=== PATIENT | female | born 1980 | race Caucasian/White ===

== ENCOUNTER 2020-05-20 21:02 | Emergency (ER) | payer SELFPAY ==
[~2020-05-20] VITALS: Ht 165.1 cm; Wt 74.5 kg
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
[2020-05-20] MEDS ORDERED: IV NORMAL SALINE 1,000ML 1,000 ML IV ONE (21:30)
[2020-05-20 21:42] LABS: CALCIUM 9.3 mg/dL (8.5-10.1); GFR 62.1; POTASSIUM 3.3 mmol/L (3.5-5.1)
[2020-05-20 21:48] LABS: ALBUMIN 3.7 g/dL (3.4-5.0); ALBUMIN/GLOBULIN RATIO 0.9 (1.0-1.7); BASO % 1 % (0-3); EOS # 0.1 x10^3/uL (0.0-0.7); EOS % 1 % (0-3); HEMATOCRIT 38.6 % (36.0-47.0); HEMOGLOBIN 12.3 g/dL (12.0-15.5); LYMPH % 15 % (24-48); MEAN CORPUSCULAR HEMOGLOBIN 28 pg (25-35); MEAN CORPUSCULAR HGB CONC 32 g/dL (31-37); MEAN CORPUSCULAR VOLUME 87 fL (79-100); MONO % 14 % (0-9); NEUT # 4.8 x10^3uL (1.8-7.7); NEUT % 70 % (31-73); PLATELET COUNT 315 x10^3/uL (140-400); RED BLOOD COUNT 4.43 x10^6/uL (3.50-5.40); RED CELL DISTRIBUTION WIDTH 16.6 % (11.5-14.5); TOTAL BILIRUBIN 0.2 mg/dL (0.2-1.0); TOTAL PROTEIN 7.8 g/dL (6.4-8.2); WHITE BLOOD COUNT 6.9 x10^3/uL (4.0-11.0)
[2020-05-20 21:50] LABS: PREG TEST PT QUAL NEGATIVE (NEG)
--- NOTE | 2020-05-20 21:54 | RAD ---
STUDY: CT head and cervical spine without contrast INDICATION: Recurrent seizures. Fall with injury. COMPARISON: None. TECHNIQUE: Axial CT imaging through the head and cervical spine without the use of intravenous contrast. Sagittal and coronal reformats were obtained. One or more of the following individualized dose reduction techniques were utilized for this examination: 1. Automated exposure control 2. Adjustment of the mA and/or kV according to patient size 3. Use of iterative reconstruction technique. FINDINGS: CT head: No acute intracranial hemorrhage. No mass effect, midline shift or hydrocephalus. Gold-white matter differentiation is maintained. Rounded density extending above the expected location of the carotid terminus on the right, image 11 series 2, measures approximately 5.4 mm transverse. No depressed calvarial fracture. CT cervical spine: No acute fracture or traumatic malalignment. No severe osseous encroachment on the central canal or neural foramina. There is a mild disc osteophyte complex at C5-C6. No soft tissue sequela of trauma. Unremarkable lung apices. IMPRESSION: CT head: 1. No acute intracranial abnormality by CT. 2. In keeping with the provided history of an aneurysm, a rounded focus of hyperdensity extends upwards from the expected location of the right carotid terminus typical of a saccular aneurysm measuring on this unenhanced exam up to 5.[address] cervical spine: 1. No acute fracture or traumatic malalignment. Electronically signed by: RUSTY PEARSON MD (05/20/2020 9:51 PM) [id number]
[2020-05-20 22:15] VITALS: BP 126/73
--- NOTE | 2020-05-21 01:42 | EKG ---
[address] [address] Test Date: 2020-05-20 Test Time: 21:50:56 Pat Name: JENNY DOMINGUEZ Department: Room: Gender: F [employer]: : 1980 Requested By: ISMAEL HASTINGS Order Number: [id number] Reading MD: Measurements Intervals [place] Rate: 86 P: 29 CO: 108 QRS: 11 QRSD: 92 T: 28 QT: 362 QTc: 436 Interpretive Statements SINUS RHYTHM NORMAL ECG RI6.02 No previous ECG available for comparison
== END 2020-05-20 22:20 | disposition left against medical advice (07) ==
LOC: ER 21:02
DX: R56.9 Unspecified convulsions (principal); I67.1 Cerebral aneurysm, nonruptured; I10 Essential (primary) hypertension; F17.210 Nicotine dependence, cigarettes, uncomplicated; F10.20 Alcohol dependence, uncomplicated; Z88.2 Allergy status to sulfonamides; Y90.9 Presence of alcohol in blood, level not specified
CPT/HCPCS: 36415; 70450; 72125; 80053; 84703; 85025; 93005; 96360; 99285; J7030

== ENCOUNTER 2020-09-10 15:42 | Emergency (ER) | payer SELFPAY ==
[~2020-09-10] VITALS: Ht 165.1 cm; Wt 74.5 kg
[2020-09-10 15:53] VITALS: BP 147/97
[2020-09-10] MEDS ORDERED: IOHEXOL 350 MG/ML 100 ML VIAL. IV ONE (16:00)
[2020-09-10] MEDS ORDERED: IV NORMAL SALINE 1,000ML 1,000 ML IV ONE (16:00)
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
[2020-09-10 16:30] LABS: BASO % 0 % (0-3); EOS # 0.1 x10^3/uL (0.0-0.7); EOS % 1 % (0-3); HEMATOCRIT 39.1 % (36.0-47.0); HEMOGLOBIN 12.8 g/dL (12.0-15.5); LYMPH # 1.6 x10^3/uL (1.0-4.8); LYMPH % 19 % (24-48); MEAN CORPUSCULAR HEMOGLOBIN 28 pg (25-35); MEAN CORPUSCULAR HGB CONC 33 g/dL (31-37); MEAN CORPUSCULAR VOLUME 87 fL (79-100); MONO # 1.2 x10^3/uL (0.0-1.1); MONO % 13 % (0-9); NEUT # 5.8 x10^3uL (1.8-7.7); NEUT % 67 % (31-73); PLATELET COUNT 272 x10^3/uL (140-400); RED BLOOD COUNT 4.53 x10^6/uL (3.50-5.40); WHITE BLOOD COUNT 8.7 x10^3/uL (4.0-11.0)
[2020-09-10 16:35] LABS: CALCIUM 9.1 mg/dL (8.5-10.1); CREATININE 0.7 mg/dL (0.6-1.0); GFR 93.6; POTASSIUM 4.6 mmol/L (3.5-5.1)
[2020-09-10 16:43] LABS: ALBUMIN 3.6 g/dL (3.4-5.0); ALBUMIN/GLOBULIN RATIO 0.9 (1.0-1.7); TOTAL BILIRUBIN 0.1 mg/dL (0.2-1.0); TOTAL PROTEIN 7.6 g/dL (6.4-8.2)
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
== END 2020-09-10 17:49 | disposition home or self-care (01) ==
LOC: ER 15:42 → EEVIPCON 15:42 → ER 17:49
DX: R51.9 Headache, unspecified (principal); R09.89 Other specified symptoms and signs involving the circulatory and respiratory systems; I10 Essential (primary) hypertension; F60.3 Borderline personality disorder; F41.9 Anxiety disorder, unspecified; F31.9 Bipolar disorder, unspecified; F17.210 Nicotine dependence, cigarettes, uncomplicated; F15.10 Other stimulant abuse, uncomplicated; F10.20 Alcohol dependence, uncomplicated; Z88.2 Allergy status to sulfonamides; Y90.0 Blood alcohol level of less than 20 mg/100 ml; Y08.89XA Assault by other specified means, initial encounter; Y93.89 Activity, other specified; Y92.89 Other specified places as the place of occurrence of the external cause; Y99.8 Other external cause status
CPT/HCPCS: 36415; 70496; 70498; 80053; 85025; 85610; 96361; 96374; 99285; G0480; J3010; J7030

== ENCOUNTER 2020-09-13 19:36 | Emergency (ER) | payer SELFPAY ==
[~2020-09-13] VITALS: Ht 165.1 cm; Wt 74.5 kg
--- NOTE | 2020-09-13 20:05 | RAD ---
CT head without contrast dated 09/13/2020. Comparison made to 05/20/2020. Clinical data indication: History of aneurysm. Headache. TECHNIQUE: Contiguous axial imaging the head was performed from skull base to vertex. No contrast administered. One or more of the following individualized dose reduction techniques were utilized for this examinat ion: 1. Automated exposure control 2. Adjustment of the mA and/or kV according to patient size 3. Use of iterative reconstruction technique. FINDINGS: Ventricles and sulci are within normal limits for age. No midline shift or mass effect. Brain parench yma is of normal attenuation. No hemorrhage or extra-axial collection. Posterior fossa and brainstem unremarkable. Visualized paranasal sinuses and mastoid air cells are clear. No apparent calvarial abnormality. IMPRESSION: No evidence of acute intracranial abnormality. Electronically signed by: Butch Barrett MD (09/13/2020 8:02 PM) [id number]
[2020-09-13 20:20] LABS: BASO % 0 % (0-3); EOS # 0.1 x10^3/uL (0.0-0.7); EOS % 1 % (0-3); HEMATOCRIT 36.5 % (36.0-47.0); HEMOGLOBIN 11.9 g/dL (12.0-15.5); LYMPH # 0.8 x10^3/uL (1.0-4.8); LYMPH % 11 % (24-48); MEAN CORPUSCULAR HEMOGLOBIN 28 pg (25-35); MEAN CORPUSCULAR HGB CONC 33 g/dL (31-37); MEAN CORPUSCULAR VOLUME 87 fL (79-100); MONO # 0.1 x10^3/uL (0.0-1.1); MONO % 1 % (0-9); NEUT # 6.3 x10^3uL (1.8-7.7); NEUT % 87 % (31-73); PLATELET COUNT 269 x10^3/uL (140-400); RED BLOOD COUNT 4.22 x10^6/uL (3.50-5.40); RED CELL DISTRIBUTION WIDTH 14.7 % (11.5-14.5); WHITE BLOOD COUNT 7.3 x10^3/uL (4.0-11.0)
[2020-09-13 20:25] LABS: CALCIUM 8.4 mg/dL (8.5-10.1); CREATININE 0.8 mg/dL (0.6-1.0); GFR 80.3; POTASSIUM 4.3 mmol/L (3.5-5.1)
[2020-09-13 21:04] LABS: BACTERIA,URINE FEW /HPF (0-FEW); BILIRUBIN,URINE NEG (NEG); CLARITY,URINE CLEAR; COLOR,URINE YELLOW; GLUCOSE,URINE NEG (NEG); NITRITE,URINE NEG (NEG); RBC,URINE OCC /HPF (0-2); SQUAMOUS EPITHELIAL CELL,UR MANY /LPF; UROBILINOGEN,URINE 0.2 mg/dL (0.2 mg/dL); WBC,URINE OCC /HPF (0-4)
[2020-09-13] MEDS: IV RINGERS SOLUTION,LACTATED 1,000 ML IV ONE (21:13)
[2020-09-13] MEDS: diphenhydrAMINE 50 MG/ML VIAL IVP ONE (21:13)
[2020-09-13] MEDS: PROCHLORPERAZINE 10 MG/2 ML VIAL. IV ONE (21:13)
[2020-09-13] MEDS: ONDANSETRON ODT 4 MG TAB.RAPDIS PO ONE (21:14)
--- NOTE | 2020-09-13 21:20 | PHYS DOC ---
Past History Past Medical History: Hypertension, Seizure Additional Past Medical Histor: Brain aneurysm Past Surgical History: Cholecystectomy, Additional Past Surgical Histo: D&C Smoking: Cigarettes Alcohol Use: Heavy Drug Use: Amphetamine Adult General Chief Complaint Chief Complaint: HEADACHE HPI HPI Patient is a 40-year-old female with a past medical history of migraines and sup pose it cerebral aneurysm who presents with a chief complaint of migraine. States that it started today, is whole head, associated with photophobia and nausea. States it is about 7 out of 10, dull and achy in nature. States she gets 1 of these approximately once or twice a month. States this morning is not the worst headache of her life but it is pretty bad and took approximately an hour or so to get to full intensity. States they rarely start suddenly. Denies any recent travel, illnesses, fevers, neck pain or stiffness, cold or flu symptoms, chest pain, shortness of breath, abdominal pain, dysuria, hematuria, diarrhea or blood in the stool. Denies any numbness/weakness/tingling. Review of Systems Review of Systems Review of systems otherwise unremarkable except for noted in HPI. Current Medications Current Medications Current Medications Medications (Trade) Dose Ordered Sig/Keila Start Time Stop Time Status Last Admin Dose Admin Diphenhydramine HCl (Benadryl) 25 mg 1X ONCE 09/13/20 21:00 09/13/20 21:09 DC 09/13/20 21:13 25 MG Lactated Ringer's 1,000 ml @ 1,000 mls/hr 1X ONCE 09/13/20 21:00 09/13/20 21:59 09/13/20 21:13 1,000 MLS/HR Ondansetron HCl (Zofran Odt) 4 mg 1X ONCE 09/13/20 21:00 09/13/20 21:09 DC 09/13/20 21:14 4 MG Prochlorperazine Edisylate (Compazine) 10 mg 1X ONCE 09/13/20 21:00 09/13/20 21:09 DC 09/13/20 21:13 10 MG Allergies Allergies Allergies Coded Allergies Type Severity Reaction Last Updated Verified Sulfa (Sulfonamide Antibiotics) Allergy Intermediate 05/20/20 Yes Physical Exam Physical Exam Constitutional: Well developed, well nourished, no acute distress, non-toxic appearance. [] HENT: Normocephalic, atraumatic, oropharynx moist, no oral exudates, Eyes: PERRLA, EOMI, conjunctiva normal, no discharge. [] Neck: Normal range of motion, no tenderness, supple, no stridor. [] Cardiovascular:Heart rate regular rhythm, no murmur [] Lungs & Thorax: Bilateral breath sounds clear to auscultation [] Abdomen: soft, no tenderness, no masses, no pulsatile masses. [] Skin: Warm, dry, no erythema, no rash. [] Back: No tenderness, Extremities: No tenderness, no edema. [] Neurologic: Alert and oriented X 3, normal motor function, normal sensory function, no focal deficits noted. [] Psychologic: Affect normal, judgement normal, mood normal. [] Current Patient Data Vital Signs Vital Signs Date Time Temp Pulse Resp B/P (MAP) Pulse Ox O2 Delivery O2 Flow Rate FiO2 09/13/20 19:55 99.2 103 18 132/78 (96) 100 Room Air Lab Results Laboratory Tests Test 09/13/20 19:50 09/13/20 20:26 09/13/20 20:31 White Blood Count 7.3 x10^3/uL (4.0-11.0) Red Blood Count 4.22 x10^6/uL (3.50-5.40) Hemoglobin 11.9 g/dL (12.0-15.5) L Hematocrit 36.5 % (36.0-47.0) Mean Corpuscular Volume 87 fL (79-100) Mean Corpuscular Hemoglobin 28 pg (25-35) Mean Corpuscular Hemoglobin Concent 33 g/dL (31-37) Red Cell Distribution Width 14.7 % (11.5-14.5) H Platelet Count 269 x10^3/uL (140-400) Neutrophils (%) (Auto) 87 % (31-73) H Lymphocytes (%) (Auto) 11 % (24-48) L Monocytes (%) (Auto) 1 % (0-9) Eosinophils (%) (Auto) 1 % (0-3) Basophils (%) (Auto) 0 % (0-3) Neutrophils # (Auto) 6.3 x10^3uL (1.8-7.7) Lymphocytes # (Auto) 0.8 x10^3/uL (1.0-4.8) L Monocytes # (Auto) 0.1 x10^3/uL (0.0-1.1) Eosinophils # (Auto) 0.1 x10^3/uL (0.0-0.7) Basophils # (Auto) 0.0 x10^3/uL (0.0-0.2) Sodium Level 140 mmol/L (136-145) Potassium Level 4.3 mmol/L (3.5-5.1) Chloride Level 106 mmol/L (98-107) Carbon Dioxide Level 27 mmol/L (21-32) Anion Gap 7 (6-14) Blood Urea Nitrogen 20 mg/dL (7-20) Creatinine 0.8 mg/dL (0.6-1.0) Estimated GFR (Cockcroft-Gault) 80.3 Glucose Level 87 mg/dL (70-99) Calcium Level 8.4 mg/dL (8.5-10.1) L Urine Collection Type Unknown Urine Color Yellow Urine Clarity Clear Urine pH 5.0 Urine Specific [place] 1.020 Urine Protein Neg (NEG-TRACE) Urine Glucose (UA) Neg mg/dL (NEG) Urine Ketones (Stick) Neg mg/dL (NEG) Urine Blood Neg (NEG) Urine Nitrite Neg (NEG) Urine Bilirubin Neg (NEG) Urine Urobilinogen Dipstick 0.2 mg/dL (0.2 mg/dL) Urine Leukocyte Esterase Neg (NEG) Urine RBC Occ /HPF (0-2) Urine WBC Occ /HPF (0-4) Urine Squamous Epithelial Cells Many /LPF Urine Bacteria Few /HPF (0-FEW) POC Urine HCG, Qualitative hcg negative (Negative) EKG EKG [] Radiology/Procedures Radiology/Procedures []FINDINGS: Ventricles and sulci are within normal limits for age. No midline shift or mass effect. Brain parenchyma is of normal attenuation. No hemorrhage or extra-axial collection. Posterior fossa and brainstem unremarkable. Visualized paranasal sinuses and mastoid air cells are clear. No apparent calvarial abnormality. IMPRESSION: No evidence of acute intracranial abnormality. Electronically signed by: Butch Barrett MD (09/13/2020 8:02 PM) [id number] Heart Score Risk Factors: Risk Factors: DM, Current or recent (<one month) smoker, HTN, HLP, family history of CAD, obesity. Risk Scores: Risk Factors: DM, Current or recent (<one month) smoker, HTN, HLP, family history of CAD, obesity. Course & Med Decision Making Course & Med Decision Making Patient is a 40-year-old female presents with migrainous symptoms. Vital signs not concerning. Physical exam noted above. Head CT noted above with no acute hemorrhage or mass shift and patient is well within the 6-hour wong. Given migraine cocktail. Negative . Laboratory analysis not concerning. On reassessment patient was awake and alert stating that her headache was significantly better and was ready to go home. Patient asking for something to drink. P.o. challenged with a soda and ice. Patient able to sit on her own and ambulate on her own, endorses relief and is ready to go home. Advised to follow-up with her primary care physician to discuss migraine headaches and management at home. Advised come back to the ED with new or concerning symptoms. Patient was grateful, verbalized understanding and agreed with plan of discharge. [] Dragon Disclaimer Dragon Disclaimer This electronic medical record was generated, in whole or in part, using a voice recognition dictation system. Departure Departure: Impression: Primary Impression: Migraine Referrals: PCP,DESTINY (PCP) Patient Instructions: Migraine Headache Additional Instructions: Please read all the attached information. Please continue to use Tylenol, ibuprofen, Benadryl at home as needed for migraine headaches. Please stay hydrated and eat appropriately. Please do not smoke cigarettes or drink alcohol and make sure to get plenty of sleep as these can be triggers. Please follow- up with your primary care physician first thing tomorrow to set up a post ER follow-up visit and discuss migraine headache management. Please come back to the emergency department immediately with any new or concerning symptoms. ISMAEL SILVA MD Sep 13, 2020 21:20
[2020-09-13 22:30] VITALS: BP 124/68
== END 2020-09-13 22:30 | disposition home or self-care (01) ==
LOC: ER 19:36
DX: G43.909 Migraine, unspecified, not intractable, without status migrainosus (principal); I10 Essential (primary) hypertension; F17.210 Nicotine dependence, cigarettes, uncomplicated; F10.20 Alcohol dependence, uncomplicated; Z88.2 Allergy status to sulfonamides; Y90.9 Presence of alcohol in blood, level not specified
CPT/HCPCS: 36415; 70450; 80048; 81001; 81025; 85025; 96361; 96374; 96375; 99284; J0780; J1200; J7120; Q0162

== ENCOUNTER 2020-10-13 22:43 | Emergency (ER) | payer SELFPAY ==
[~2020-10-13] VITALS: Ht 165.1 cm; Wt 74.5 kg
[2020-10-13 22:43] VITALS: BP 137/97
--- NOTE | 2020-10-13 22:53 | PHYS DOC ---
Past History Past Medical History: Hypertension, Seizure Additional Past Medical Histor: Brain aneurysm Past Medical History Polysubstance abuse Past Surgical History: Cholecystectomy, Additional Past Surgical Histo: D&C Smoking: Cigarettes Alcohol Use: Heavy Drug Use: Amphetamine General Adult HPI: HPI: ".. I probably had one of my seizures.. I had just done about 1/2 gram of meth.. .. and I have a seizure disorder... I do not take any meds for my seizure disorder.... Because they never seem to help.... But the paramedics came and said I had to go to the hospital.... I did not even wet myself or bite my tongue... Can you discharge me now.." Patient is a 40 year old female who presents with above hx and complaints seizure after smoking approximately one half a gram of methamphetamine. Patient states she recently has been doing approximately half a gram of methamphetamine a day. Patient also has been drinking more alcohol recently. Patient states she plans to get back in drug rehab and has a scheduled appointment at . Patient states she has had some periods in her life where she has had prolonged sobriety . Patient advises she has used IV drugs in the past but not currently. Patient denies any history immunosuppression.. 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 Patient states she has had approximately 17 in hospital admissions for drug rehab. Patient advises her drug abuse started at age 14. Patient denies any head trauma. Patient currently is not interested and further evaluation for possible placement and drug rehab. Patient currently declining any labs or further evaluation. Patient normally follows at primary care clinic. Review of Systems: Review of Systems: Constitutional: Denies fever or chills Eyes: Denies change in visual acuity HENT: Denies nasal congestion or sore throat Respiratory: Denies cough or shortness of breath Cardiovascular: Denies chest pain or edema GI: Denies abdominal pain, nausea, vomiting, bloody stools or diarrhea : Denies dysuria Musculoskeletal: Denies back pain or joint pain Integument: Denies rash Neurologic: Denies headache, focal weakness or sensory changes . Complains of seizure Endocrine: Denies polyuria or polydipsia Lymphatic: Denies swollen glands Psychiatric: History of depression or anxiety. Denies any suicidal ideation Family History: Family History: Noncontributory to presentation Current Medications: Current Meds: See nursing for home meds Allergies: Allergies: Allergies Coded Allergies Type Severity Reaction Last Updated Verified Sulfa (Sulfonamide Antibiotics) Allergy Intermediate 05/20/20 Yes Physical Exam: PE: Constitutional: no acute distress, non-toxic appearance. [] Multicolored hair, with the right side of her scalp shaved HENT: Normocephalic, atraumatic, bilateral external ears normal, oropharynx moist, no oral exudates, nose normal. Poor dentition. Multiple studs Eyes: PERRLA, EOMI, conjunctiva normal, no discharge. [] Neck: Normal range of motion, no tenderness, supple, no stridor. [] Cardiovascular:Heart rate regular rhythm, no murmur [] Lungs & Thorax: Bilateral breath sounds equal apex with few scattered wheezes on auscultation [] Abdomen: Bowel sounds normal, soft, no tenderness, no masses, no pulsatile masses. [] Skin: Warm, dry, no erythema, no rash. Tattoos. Old needle nguyen. Back: No tenderness, no CVA tenderness. [] Extremities: No tenderness, no cyanosis, no clubbing, ROM intact, no edema. [] Neurologic: Alert and oriented X 3, normal motor function, normal sensory function, no focal deficits noted. [] DTRs +2 patella and brachial. Asset Administrator equal. No drift. Patient is ambulatory without problems. Psychologic: Affect normal, judgement normal, mood normal. [] EKG: EKG: Patient declined [] Radiology/Procedures: Radiology/Procedures: Patient declined [] Heart Score: Risk Factors: Risk Factors: DM, Current or recent (<one month) smoker, HTN, HLP, family history of CAD, obesity. Risk Scores: Score 0 - 3: 2.5% MACE over next 6 weeks - Discharge Home Score 4 - 6: 20.3% MACE over next 6 weeks - Admit for Clinical Observation Score 7 - 10: 72.7% MACE over next 6 weeks - Early Invasive Strategies Course & Med Decision Making: Course & Med Decision Making Pertinent Labs and Imaging studies reviewed. (See chart for details) Encourage patient to reduce her drug and alcohol use. Encourage patient to keep her follow-up at and possible placement and drug rehab. Patient declined further work-up at this time. Patient advised not to drive or do hazardous activity until released by her primary care. Risk and benefits of discharge with limited evaluation discussed with patient. Patient exhibits [employer] [place]. Impression: 1. History of altered mental status-suspect seizure activity 2. History of polysubstance abuse [] Dragon Disclaimer: Dragon Disclaimer: This electronic medical record was generated, in whole or in part, using a voice recognition dictation system. Departure Departure: Referrals: PCP,NO (PCP) Farrah Disclaimer This chart was dictated in whole or in part using Voice Recognition software in a busy, high-work load, and often noisy Emergency Department environment. It may contain unintended and wholly unrecognized errors or omissions. BETTIE HOOVER MD Oct 13, 2020 22:53
[2020-10-13 23:29] LABS: BARBITURATES NEG (NEG); BENZODIAZEPINES NEG (NEG); CANNABINOIDS NEG (NEG); COCAINE NEG (NEG); METHADONE NEG (NEG); OPIATES NEG (NEG); PHENCYCLIDINE NEG (NEG)
[2020-10-13 23:34] LABS: BILIRUBIN,URINE NEG (NEG); CLARITY,URINE CLEAR; COLOR,URINE YELLOW; GLUCOSE,URINE NEG (NEG); NITRITE,URINE NEG (NEG); RBC,URINE 0 /HPF (0-2); UROBILINOGEN,URINE 0.2 mg/dL (0.2 mg/dL)
[2020-10-13 23:35] LABS: BACTERIA,URINE FEW /HPF (0-FEW); SQUAMOUS EPITHELIAL CELL,UR OCC /LPF
[2020-10-13 23:36] LABS: AMPHETAMINE/METHAMPHETAMINE POS (NEG)
== END 2020-10-13 23:20 | disposition home or self-care (01) ==
LOC: ER 22:43
DX: R56.9 Unspecified convulsions (principal); I10 Essential (primary) hypertension; F17.210 Nicotine dependence, cigarettes, uncomplicated; F15.10 Other stimulant abuse, uncomplicated; F10.20 Alcohol dependence, uncomplicated; Y90.0 Blood alcohol level of less than 20 mg/100 ml; Z88.2 Allergy status to sulfonamides
CPT/HCPCS: 36415; 80307; 81001; 99283

== ENCOUNTER 2020-11-23 18:56 | Emergency (ER) | payer SELFPAY ==
[~2020-11-23] VITALS: Ht 167.6 cm; Wt 75.1 kg
[2020-11-23 19:00] VITALS: BP 156/93
--- NOTE | 2020-11-23 19:25 | PHYS DOC ---
Past History Past Medical History: Anxiety, Bipolar, Depression, Schizophrenia, Other Additional Past Medical Histor: brain issues, PTSD (RIKAGILL Tubbs APPELLATE LAW CLERK) Past Surgical History: Cholecystectomy, Tubal ligation Additional Past Surgical Histo: D&C (CHARLIEGILL APPELLATE LAW CLERK) Smoking: Cigarettes Alcohol Use: None Drug Use: Amphetamine (RIKAGILL Tubbs APPELLATE LAW CLERK) Adult General Chief Complaint Chief Complaint: SHORTNESS OF BREATH HPI HPI Patient is a female with history of anxiety, bipolar, depression, schizophrenia, who presents to the ED today requesting a COVID-19 test. Patient states she resides in the home with a man that is currently being seen in the ED that developed a fever and sore throat and headache yesterday and she is worried she has COVID-19. She states she has shortness of breath that began an hour ago though she reports smoking marijuana with unknown ingredients. She states she does not need help with Drugs. (DANAYVIOLETGILL Tubbs APPELLATE LAW CLERK) Review of Systems Review of Systems Constitutional: Denies fever or chills [] Eyes: Denies change in visual acuity, redness, or eye pain [] HENT: Denies nasal congestion or sore throat [] Respiratory: Reports shortness of breath. Denies cough Cardiovascular: No additional information not addressed in HPI [] GI: Denies abdominal pain, nausea, vomiting, bloody stools or diarrhea [] : Denies dysuria or hematuria [] Musculoskeletal: Denies back pain or joint pain [] Integument: Denies rash or skin lesions [] Neurologic: Denies headache, focal weakness or sensory changes [] All other systems were reviewed and found to be within normal limits, except as documented in this note. (GILL GUERRA APPELLATE LAW CLERK) Allergies Allergies Allergies Coded Allergies Type Severity Reaction Last Updated Verified Sulfa (Sulfonamide Antibiotics) Allergy Intermediate 05/20/20 Yes vancomycin Allergy Unknown 11/23/20 Yes (GILL GUERRA APPELLATE LAW CLERK) Physical Exam Physical Exam Constitutional: Well developed, well nourished, no acute distress, non-toxic appearance. [] HENT: Normocephalic, atraumatic, bilateral external ears normal, oropharynx moist, no oral exudates, nose normal. [] Eyes: PERRLA, EOMI, conjunctiva normal, no discharge. [] Neck: Normal range of motion, no tenderness, supple, no stridor. [] Cardiovascular: Tachycardic Lungs & Thorax: Bilateral breath sounds clear to auscultation [] Abdomen: Bowel sounds normal, soft, no tenderness, no masses, no pulsatile masses. [] Skin: Warm, dry, no erythema, no rash. [] Back: No tenderness, no CVA tenderness. [] Extremities: No tenderness, no cyanosis, no clubbing, ROM intact, no edema. [] Neurologic: Alert and oriented X 3, normal motor function, normal sensory function, no focal deficits noted. [] Psychologic: Affect normal, judgement normal, mood normal. [] (GILL GUERRA APRN) Current Patient Data Vital Signs Vital Signs Date Time Temp Pulse Resp B/P (MAP) Pulse Ox O2 Delivery O2 Flow Rate FiO2 11/23/20 19:00 98.2 112 20 156/93 (114) 100 Room Air (GILL GUERRA APRN) EKG EKG [] (GILL GUERRA APRN) Radiology/Procedures Radiology/Procedures [] (GILL GUERRA APRN) Heart Score C/O Chest Pain: N/A Risk Factors: Risk Factors: DM, Current or recent (<one month) smoker, HTN, HLP, family history of CAD, obesity. Risk Scores: Risk Factors: DM, Current or recent (<one month) smoker, HTN, HLP, family history of CAD, obesity. (GILL GUERRA APRN) Course & Med Decision Making Course & Med Decision Making Pertinent Labs and Imaging studies reviewed. (See chart for details) This is a 40-year-old female patient presented to the ED today complaining of shortness of breath that began an hour ago and requesting a Covid test. Patient states she lives in a house with a gentleman that has a fever sore throat and a headache and she is worried she was exposed to COVID-19. She also reports smoking marijuana laced with unknown object. Her heart rates have been in the 90s to low 100s. She is refusing any further work-up except COVID-19 test. COVID-19 test was performed patient was sent home, education provided especially the need to quarantine, wear mask and maintain good hand hygiene (GILL GUERRA APRN) Dragon Disclaimer Dragon Disclaimer This electronic medical record was generated, in whole or in part, using a voice recognition dictation system. (GILL GUERRA APRN) Departure Departure: Impression: Primary Impression: Person under investigation for COVID-19 Additional Impressions: Shortness of breath Marijuana use Disposition: 01 DC HOME SELF CARE/HOMELESS Condition: STABLE Referrals: PCP,UNKNOWN (PCP) follow up with your doctor in 2 weeks Patient Instructions: Shortness of Breath Additional Instructions: You were tested for COVID-19 in the emergency room. Please quarantine yourself until you get results from us. Push fluids, rest, maintain good hand hygiene. Wear your mask. Follow-up with your doctor in 2 weeks Scripts Albuterol Sulfate (PROAIR HFA INHALER) 8.5 Gm Hfa.aer.ad 2 PUFF IH PRN Q4-6HRS PRN for wheezing for 21 Days, #1 INHALER 0 Refills Prov: GILL GUERRA APRN 11/23/20 Attending Signature Attending Signature I have reviewed the PA/ACUTE DIALYSIS NURSE's note and plan of care. I was available for consultation as needed during the patient's visit in the emergency department. I agree with the clinical impression, plan, and disposition. (ROWAN JOE DO) Problem Qualifiers GILL GUERRA APRN Nov 23, 2020 19:25 ROWAN JOE DO Nov 24, 2020 00:53
[2020-11-23] MEDS ORDERED: ALBU2.5V8 IH (19:29)
== END 2020-11-23 19:33 | disposition home or self-care (01) ==
LOC: ER 18:56
DX: F12.10 Cannabis abuse, uncomplicated (principal); R06.02 Shortness of breath; F41.9 Anxiety disorder, unspecified; F31.9 Bipolar disorder, unspecified; F20.9 Schizophrenia, unspecified; F17.210 Nicotine dependence, cigarettes, uncomplicated; Z20.822 Contact with and (suspected) exposure to COVID-19; Z88.2 Allergy status to sulfonamides; Z88.1 Allergy status to other antibiotic agents
CPT/HCPCS: 99283; C9803; U0003; U0005

== ENCOUNTER 2020-11-29 19:50 | Emergency (ER) | payer SELFPAY ==
[~2020-11-29] VITALS: Ht 167.6 cm; Wt 75.1 kg
[2020-11-29 19:50] VITALS: BP 154/107
[~2020-11-29 19:50] MED LIST: ALBU2.5V8 IH
[2020-11-29] MEDS ORDERED: IBUPROFEN 600 MG TABLET. PO ONE (21:30)
[2020-11-29] MEDS ORDERED: HYDROcodone/APAP 5/325MG 1 TAB TABLET PO ONE (21:30)
--- NOTE | 2020-11-29 22:03 | PHYS DOC ---
Past History Past Medical History: Anxiety, Bipolar, Depression, Hypertension, Schizophrenia, Other Additional Past Medical Histor: brain issues, PTSD (ROWAN ANNE APRN) Past Surgical History: Cholecystectomy, Tonsillectomy, Tubal ligation Additional Past Surgical Histo: D&C (ROWAN ANNE APRN) Smoking: Cigarettes Alcohol Use: Occasionally Drug Use: Amphetamine (ROWAN ANNE APRN) Adult General Chief Complaint Chief Complaint: ABDOMINAL PAIN HPI HPI Patient is a 40-year-old female who presents to the emergency department complaining of left-sided lower pelvic cramping. Patient states she fears she might be as she has had a tubal ligation in the past. Patient also states she has had abnormal menstrual cycles with abnormal uterine bleeding since September 09. Patient reports her last normal menstrual cycle was September [id number] with normal duration of flow. Patient states she missed her menstrual cycle in September, had a very short late duration menstrual cycle in the beginning of October, and has not had a menstrual cycle since. Patient denies nausea, vomiting, diarrhea, or constipation. Patient denies any urinary tract infection signs and symptoms, denies vaginal discharge, denies STI concerns denies vaginal bleeding. Patient states that she was followed up for this at a month ago and was told she had bacterial vaginosis and was treated at that time. Patient states she did not have vaginal discharge or STI concerns when she was seen at . Patient denies any other physical complaints or physical concerns. Patient reports her pain a 5/10 pain however reports she cannot de scribe it as a pain stating it feels more like a menstrual cramping. (ROWAN ANNE APRN) Review of Systems Review of Systems 14 body systems of review of systems have been reviewed. See HPI for pertinent positives and negative responses, otherwise all other systems are negative, nonpertinent or noncontributory. (ROWAN ANNE APRN) Current Medications Current Medications Current Medications Medications (Trade) Dose Ordered Sig/Keila Start Time Stop Time Status Last Admin Dose Admin Acetaminophen/ Hydrocodone Bitart (Lortab 5/325) 2 tab 1X ONCE 11/29/20 21:30 11/29/20 21:31 DC 11/29/20 21:57 2 TAB Ibuprofen (Motrin) 600 mg 1X ONCE 11/29/20 21:30 11/29/20 21:31 DC 11/29/20 21:57 600 MG (ROWAN ANNE APRN) Allergies Allergies Allergies Coded Allergies Type Severity Reaction Last Updated Verified Sulfa (Sulfonamide Antibiotics) Allergy Intermediate 05/20/20 Yes vancomycin Allergy Unknown 11/23/20 Yes (ROWAN ANNE APRN) Physical Exam Physical Exam Constitutional: Well developed, well nourished, no acute distress, non-toxic appearance. 40-year-old female no apparent distress, patient's complaint of pain exceeds patient's physical appearance. HENT: Normocephalic, atraumatic, bilateral external ears normal, oropharynx moist, no oral exudates, nose normal. Eyes: PERRLA, EOMI, conjunctiva normal, no discharge. Neck: Normal range of motion, no tenderness, supple, no stridor. Cardiovascular:Heart rate regular rhythm, no murmur, heart sounds S1-S2 to auscultation. Lungs & Thorax: Bilateral breath sounds clear to auscultation all lung bolden, no adventitious lung sounds appreciated. Abdomen: Bowel sounds normal, soft, no tenderness, no masses, no pulsatile masses. No tenderness to palpation all 4 quadrants of the abdomen, no tenderness to palpation and lower pelvic area. No bruising or ecchymotic areas of the abdomen appreciated. Skin: Warm, dry, no erythema, no rash. Back: No tenderness, no CVA tenderness. Extremities: No tenderness, no cyanosis, no clubbing, ROM intact, no edema. Neurologic: Alert and oriented X 3, normal motor function, normal sensory function, no focal deficits noted. Psychologic: Affect normal, judgement normal, mood normal. (ROWAN ANNE APRN) Current Patient Data Vital Signs Vital Signs Date Time Temp Pulse Resp B/P (MAP) Pulse Ox O2 Delivery O2 Flow Rate FiO2 11/29/20 21:57 18 96 Room Air 11/29/20 19:50 98.2 90 154/107 (123) Lab Results Laboratory Tests Test 11/29/20 20:19 11/29/20 20:22 Urine Collection Type Unknown Urine Color Colorless Urine Clarity Clear Urine pH 5.5 Urine Specific Ralls 1.025 Urine Protein Neg Urine Glucose (UA) Neg mg/dL Urine Ketones (Stick) Neg mg/dL Urine Blood Neg Urine Nitrite Neg Urine Bilirubin Neg Urine Urobilinogen Dipstick 0.2 mg/dL Urine Leukocyte Esterase Neg Urine RBC 0 /HPF Urine WBC 0 /HPF Urine Squamous Epithelial Cells None /LPF Urine Bacteria 0 /HPF Bedside Urine HCG, Qualitative hcg negative Current Medications Medications (Trade) Dose Ordered Sig/Keila Route PRN Reason Start Time Stop Time Status Last Admin Dose Admin Acetaminophen/ Hydrocodone Bitart (Lortab 5/325) 2 tab 1X ONCE PO 11/29/20 21:30 11/29/20 21:31 DC 11/29/20 21:57 Ibuprofen (Motrin) 600 mg 1X ONCE PO 11/29/20 21:30 11/29/20 21:31 DC 11/29/20 21:57 Laboratory Tests Test 11/29/20 20:22 POC Urine HCG, Qualitative hcg negative (Negative) Microbiology 11/29/20 Wet Prep - Final, Complete (ROWAN ANNE APRN) EKG EKG [] (ROWAN ANNE APRN) Radiology/Procedures Radiology/Procedures [] (ROWAN ANNE APRN) Heart Score C/O Chest Pain: No Risk Factors: Risk Factors: DM, Current or recent (<one month) smoker, HTN, HLP, family history of CAD, obesity. Risk Scores: Risk Factors: DM, Current or recent (<one month) smoker, HTN, HLP, family history of CAD, obesity. (ROWAN ANNE APRN) Course & Med Decision Making Course & Med Decision Making Pertinent Labs and Imaging studies reviewed. (See chart for details) 40-year-old female, vital signs reviewed, presents emergency department concerning she might be with a tubal . Physical examination was unremarkable. A urinalysis assay and urine test was ordered. Patient's urine test was negative. Discussed this with patient, with history of bacterial vaginosis, recommended pelvic exam. Patient deferred pelvic exam stating she would rather self swab. Patient was given GC and chlamydia swab with wet prep swab by ED nursing staff, patient self swabbed and bathroom, specimen sent to lab. Wet prep negative for yeast, trichomonas, clue cells, bacterial vaginosis unlikely. Pending urinalysis at this time. Patient was given oral pain medication awaiting urinalysis assay results. Reevaluation of patient, patient states she is now pain-free. The patient's urine was not infected, the patient is not , all labs were equivocal. Discussed with patient diagnosis of abnormal menstrual cycles, recommended she follow-up with [facility] soon. Patient will be given a primary care follow-up and an [facility] to follow-up for this problem. Patient gave verbal understanding of discharge home instructions, follow-up with [facility] soon, tablets a primary care provider this week, return to emergency department precautions or concerns, was discharged home without incident. (ROWAN ANNE APRN) Course & Med Decision Making Did not see or evaluate patient. Agree with ARRESTING GEAR OPERATOR's work-up and disposition per note. (ISMAEL SILVA MD) Dragon Disclaimer Dragon Disclaimer This electronic medical record was generated, in whole or in part, using a voice recognition dictation system. (ROWAN ANNE APRN) Departure Departure: Impression: Primary Impression: H/O abnormal menstrual cycle Additional Impression: Abdominal pain of unknown etiology Disposition: 01 DC HOME SELF CARE/HOMELESS Condition: GOOD Referrals: PCP,UNKNOWN (PCP) ROWAN ESPINOZA MD, ANGELA M PA Additional Instructions: Please follow-up with [facility] specialist Dr. Espinoza this week for further evaluation of your abnormal and missed menstrual cycles, please establish a primary care provider with DMITRIY Plummer. Return to the emergency department for worsening symptoms or other concerns. EMERGENCY DEPARTMENT GENERAL DISCHARGE INSTRUCTIONS Thank you for coming to [facility] (ED) today and trusting us with you care. We trust that you had a positivie experience in our Emergency Department. If you wish to speak to the department management, you may call the director at [phone]. YOUR FOLLOW UP INSTRUCTIONS ARE FOLLOWS: 1. Do you have a private Doctor? If you do not have a private doctor, please ask for a resource list of physicians or clinics that may be able to assist you with follow up care. 2. The Emergency Physician has interpreted your x-rays. The X-Ray specialist will also review them. If there is a change in the findings, you will be notified in 48 hours when at all possible. 3. A lab test or culture has been done, your results will be reviewed and you will be notified if you need a change in treatment. ADDITIONAL INSTRUCTIONS AND INFORMATION: 1. Your care today has been supervised by a physician who is specially trained in emergency care. Many problems require more than one evaluation for a complete diagnosis and treatment. We recommend that you schedule your follow up appointment as recommended to ensure complete treatment of you illness or injury. If you are unable to obtain follow up care and continue to have a problem, or if your condition worsens, we recommend that you return to the ED. 2. We are not able to safely determine your condition over the phone nor are we able to give sound medical advice over the phone. For these safety reasons, if you call for medical advice we will ask you to come to the ED for further evaluation. 3. If you have any questions regarding these discharge instructions please call the ED at [phone]. SAFETY INFORMATION: In the interest of safety, wellness, and injury prevention; we encourage you to wear your sealbelt, if you smoke; quite smoking, and we encourage family to use a protective helmet for bicycling and other sporting events that present an increased risk for head injury. IF YOUR SYMPTOMS WORSEN OR NEW SYMPTOMS DEVELOP, OR YOU HAVE CONCERNS ABOUT YOUR CONDITION; OR IF YOUR CONDITION WORSENS WHILE YOU ARE WAITING FOR YOUR FOLLOW UP APPOINTMENT; EITHER CONTACT YOUR PRIMARY CARE DOCTOR, THE PHYSICIAN WHOSE NAME AND NUMBER YOU WERE GIVEN, OR RETURN TO THE ED IMMEDIATELY. Problem Qualifiers ROWAN ANNE APRN Nov 29, 2020 22:03 ISMAEL SILVA MD Nov 29, 2020 23:59
[2020-11-29 22:04] LABS: BACTERIA,URINE 0 /HPF (0-FEW); BILIRUBIN,URINE NEG (NEG); CLARITY,URINE CLEAR; COLOR,URINE COLORLESS; GLUCOSE,URINE NEG (NEG); NITRITE,URINE NEG (NEG); RBC,URINE 0 /HPF (0-2); UROBILINOGEN,URINE 0.2 mg/dL (0.2 mg/dL); WBC,URINE 0 /HPF (0-4)
== END 2020-11-29 22:26 | disposition home or self-care (01) ==
LOC: ER 19:50
DX: R10.2 Pelvic and perineal pain (principal); N93.8 Other specified abnormal uterine and vaginal bleeding; F41.9 Anxiety disorder, unspecified; F31.9 Bipolar disorder, unspecified; I10 Essential (primary) hypertension; F20.9 Schizophrenia, unspecified; F17.210 Nicotine dependence, cigarettes, uncomplicated; Z90.49 Acquired absence of other specified parts of digestive tract; Z98.51 Tubal ligation status; Z88.2 Allergy status to sulfonamides; Z88.1 Allergy status to other antibiotic agents
CPT/HCPCS: 81001; 81025; 87491; 87591; 99283; Q0111; 36415

== ENCOUNTER 2020-12-05 22:59 | Emergency (ER) | payer SELFPAY ==
[~2020-12-05] VITALS: Ht 167.6 cm; Wt 89.7 kg
--- NOTE | 2020-12-05 23:55 | PHYS DOC ---
Past History Past Medical History: Anxiety, Bipolar, Depression, Hypertension, Schizophrenia, Other Additional Past Medical Histor: brain issues, PTSD Past Surgical History: Cholecystectomy, Tonsillectomy, Tubal ligation Additional Past Surgical Histo: D&C Smoking: Cigarettes Alcohol Use: Occasionally Drug Use: Amphetamine General Adult EDM: Chief Complaint: DENTAL PROBLEM HPI: HPI: "... I got bad dental pain... ".. I lost the tooth in front of the one that fractured...." " .. I got an appointment at because I got I have a aneurysm repaired... In my right carotid area"... "I does need some Tylenol and get started on antibiotics.. before I see the dentist..." Patient is a 40 year old female who presents with above hx and complaints of fracture of tooth 17 and loss of On tooth 18. Patient has multiple areas of decay and gingivitis. Patient has obvious facial cellulitis and adenopathy at left angle of jaw.. No trismus. No history immunosuppression. No recent travel. No sick ill contacts. Patient states she is not currently using IV drugs and has been off methamphetamine for several months. Patient has history of anxiety, bipolar, depression, hypertension, schizophrenia, PTSD, polysubstance abuse, dysfunctional uterine bleeding, chronic abdomen pain, and tobacco use. Patient follows at for all of her care. Has a pending surgery of right carotid aneurysm at . Has had other surgeries of cholecystectomy and tonsillectomy and tubal ligation. Review of Systems: Review of Systems: Constitutional: Denies fever or chills Eyes: Denies change in visual acuity HENT: Denies nasal congestion or sore throat . Complains of dental pain Respiratory: Denies cough or shortness of breath Cardiovascular: Denies chest pain or edema GI: Denies abdominal pain, nausea, vomiting, bloody stools or diarrhea : Denies dysuria Musculoskeletal: Denies back pain or joint pain Integument: Denies rash Neurologic: Denies headache, focal weakness or sensory changes Endocrine: Denies polyuria or polydipsia Lymphatic: Denies swollen glands Psychiatric: Denies depression or anxiety Family History: Family History: Noncontributory Current Medications: Current Meds: See nursing for home meds Allergies: Allergies: Allergies Coded Allergies Type Severity Reaction Last Updated Verified Sulfa (Sulfonamide Antibiotics) Allergy Intermediate 05/20/20 Yes vancomycin Allergy Unknown 11/23/20 Yes Physical Exam: PE: Constitutional: Moderate acute distress, non-toxic appearance. [] HENT: Normocephalic, atraumatic, bilateral external ears normal, oropharynx moist, no oral exudates, nose normal. Multiple areas of dental decay, gingivitis, fractured tooth 17 and loss of Her filling and tooth 18. Eyes: PERRLA, EOMI, conjunctiva normal, no discharge. [] Neck: Normal range of motion, no tenderness, supple, no stridor. [] Cardiovascular:Heart rate regular rhythm, no murmur [] Lungs & Thorax: Bilateral breath sounds equal apex with scattered wheezes on auscultation [] Abdomen: Bowel sounds normal, soft, no tenderness, no masses, no pulsatile ma sses. Old surgery scars. Skin: Warm, dry, no erythema, no rash. Tattoos. Old injection sites. Back: No tenderness, no CVA tenderness. [] Extremities: No tenderness, no cyanosis, no clubbing, ROM intact, no edema. [] Neurologic: Alert and oriented X 3, normal motor function, normal sensory funct ion, no focal deficits noted. [] Psychologic: Affect anxious, judgement normal, mood normal. [] EKG: EKG: [] Radiology/Procedures: Radiology/Procedures: [] Heart Score: C/O Chest Pain: N/A Risk Factors: Risk Factors: DM, Current or recent (<one month) smoker, HTN, HLP, family history of CAD, obesity. Risk Scores: Score 0 - 3: 2.5% MACE over next 6 weeks - Discharge Home Score 4 - 6: 20.3% MACE over next 6 weeks - Admit for Clinical Observation Score 7 - 10: 72.7% MACE over next 6 weeks - Early Invasive Strategies Course & Med Decision Making: Course & Med Decision Making Pertinent Labs and Imaging studies reviewed. (See chart for details) Patient rinse mouth with Listerine 4 times a day. Patient take Keflex 500 mg 3 times a day. Take Tylenol and ibuprofen as needed for pain. Keep follow-up with [facility]. Must see a dentist or dental surgeon. Impression: 1. Dental infection 2. Fractured molar #17 3. Loss of to tooth #18 4. Multiple areas of dental decay and gingivitis [] Dragon Disclaimer: Dragon Disclaimer: This electronic medical record was generated, in whole or in part, using a voice recognition dictation system. Departure Departure: Referrals: PCP,UNKNOWN (PCP) Scripts Cephalexin (KEFLEX) 750 Mg Capsule 500 MG PO TID for dental infection for 10 Days, #30 CAP Prov: BETTIE HOOVER MD 12/06/20 Farrah Disclaimer This chart was dictated in whole or in part using Voice Recognition software in a busy, high-work load, and often noisy Emergency Department environment. It may contain unintended and wholly unrecognized errors or omissions. BETTIE HOOVER MD Dec 05, 2020 23:55
[2020-12-06] MEDS ORDERED: CEPH750C9 PO (00:06)
[2020-12-06] MEDS ORDERED: ACETAMINOPHEN 500 MG TABLET PO ONE (00:30)
[2020-12-06] MEDS ORDERED: IBUPROFEN 600 MG TABLET. PO ONE (00:30)
[2020-12-06] MEDS ORDERED: cefTRIAXone IM 1 GM VIAL IM ONE (00:30)
[2020-12-06 00:35] VITALS: BP 126/76
== END 2020-12-06 00:40 | disposition home or self-care (01) ==
LOC: ER 22:59
DX: S02.5XXA Fracture of tooth (traumatic), initial encounter for closed fracture (principal); K04.7 Periapical abscess without sinus; K05.10 Chronic gingivitis, plaque induced; F31.9 Bipolar disorder, unspecified; F41.9 Anxiety disorder, unspecified; I10 Essential (primary) hypertension; F20.9 Schizophrenia, unspecified; F43.10 Post-traumatic stress disorder, unspecified; F17.210 Nicotine dependence, cigarettes, uncomplicated; Z88.1 Allergy status to other antibiotic agents; Z88.2 Allergy status to sulfonamides; X58.XXXA Exposure to other specified factors, initial encounter; Y93.89 Activity, other specified; Y92.89 Other specified places as the place of occurrence of the external cause; Y99.8 Other external cause status
CPT/HCPCS: 96372; 99283; J0696

== ENCOUNTER 2020-12-06 14:11 | Emergency (ER) | payer SELFPAY ==
[~2020-12-06] VITALS: Ht 167.6 cm; Wt 89.7 kg
[~2020-12-06 14:11] MED LIST changes: +CEPH750C9 PO
[2020-12-06 14:13] VITALS: BP 123/87
[2020-12-06] MEDS ORDERED: BENZOCAINE ONE 20% MUCOSAL SPRAY. MM (14:30)
--- NOTE | 2020-12-06 14:30 | PHYS DOC ---
Past History Past Medical History: Anxiety, Bipolar, Depression, Hypertension, Schizophrenia, Other Additional Past Medical Histor: brain issues, PTSD (ROWAN ANNE APRN) Past Surgical History: Cholecystectomy, Tonsillectomy, Tubal ligation Additional Past Surgical Histo: D&C (ROWAN ANNE APRN) Smoking: Cigarettes Alcohol Use: None Drug Use: Amphetamine (ROWAN ANNE APRN) Adult General Chief Complaint Chief Complaint: DENTAL PROBLEM HPI HPI Patient is a 40-year-old female complains of dental pain for the past 3 to 4 days. Patient states she was seen here last night in the emergency department and was given a shot of Rocephin, was given a prescription for Keflex to take until she is seen by her dentist this coming , patient states she has not filled her prescription yet. Patient states she has been taken Tylenol and Motrin for her pain, reports her pain a 10/10 on a 1-10 pain scale. Patient states she wants something stronger to get her through until she can see her dentist soon. Patient denies any numbness or tingling to her face or mouth. Patient denies any shortness of breath, or difficulty swallowing. Patient denies head or neck pain. Patient denies nausea vomiting or diarrhea. Patient denies any other physical complaints or physical concerns. (ROWAN ANNE APRN) Review of Systems Review of Systems 14 body systems of review of systems have been reviewed. See HPI for pertinent positives and negative responses, otherwise all other systems are negative, nonpertinent or noncontributory. (ROWAN ANNE APRN) Allergies Allergies Allergies Coded Allergies Type Severity Reaction Last Updated Verified Sulfa (Sulfonamide Antibiotics) Allergy Intermediate 12/06/20 Yes vancomycin Allergy Unknown 12/06/20 Yes (ROWAN ANNE APRN) Physical Exam Physical Exam Constitutional: Well developed, well nourished, no acute distress, non-toxic appearance. 40-year-old female in no apparent distress. HENT: Normocephalic, atraumatic, bilateral external ears normal, oropharynx moist, no oral exudates, nose normal. Oral examination, oropharynx pink, moist, no infectious process or deep tissue infectious process appreciated, no laryngeal swelling, no uvular edema, normal voice tones, no drooling, no trismus, patient has marked dental caries with teeth in multiple stages of dental decay and gingivitis. There is no drainage coming from her broken molar most we are on the left, pulp is exposed. Eyes: PERRLA, EOMI, conjunctiva normal, no discharge. Neck: Normal range of motion, no tenderness, supple, no stridor. No meningismus signs, no nuchal rigidity appreciated. Cardiovascular:Heart rate regular rhythm, no murmur Lungs & Thorax: Bilateral breath sounds clear to auscultation Abdomen: Bowel sounds normal, soft, no tenderness, no masses, no pulsatile masses. Skin: Warm, dry, no erythema, no rash. Back: No tenderness, no CVA tenderness. Extremities: No tenderness, no cyanosis, no clubbing, ROM intact, no edema. Neurologic: Alert and oriented X 3, normal motor function, normal sensory function, no focal deficits noted. Psychologic: Affect normal, judgement normal, mood normal. (ROWAN ANNE APRN) Current Patient Data Vital Signs Vital Signs Date Time Temp Pulse Resp B/P (MAP) Pulse Ox O2 Delivery O2 Flow Rate FiO2 12/06/20 14:13 97.8 89 16 123/87 (99) 100 Room Air (ROWAN ANNE APRN) EKG EKG [] (ROWAN ANNE APRN) Radiology/Procedures Radiology/Procedures [] (ROWAN ANNE APRN) Heart Score C/O Chest Pain: No Risk Factors: Risk Factors: DM, Current or recent (<one month) smoker, HTN, HLP, family history of CAD, obesity. Risk Scores: Risk Factors: DM, Current or recent (<one month) smoker, HTN, HLP, family history of CAD, obesity. (ROWAN ANNE APRN) Course & Med Decision Making Course & Med Decision Making Pertinent Labs and Imaging studies reviewed. (See chart for details) 40-year-old female, vital signs reviewed, presents emergency department concerning for needing stronger pain medicine for her dental pains. An extensive chart review was performed, physical examination consistent with ED provider from yesterday. We will order Hurricaine spray application to affected molar. Encourage patient to fill and take antibiotics as prescribed by previous ED provider. Continue taking Tylenol and Motrin for pain as needed, rinse mouth with Listerine or other oral care mouthwash at least 4 times a day, encourage patient to keep appointment with her physician and dentist this coming . Patient gave verbal understanding of discharge home instructions, pain management at home, antibiotic use as directed, states will keep appointment at this , gave verbal understanding of return to ER precautions and concerns, patient was discharged home without incident. (ROWAN ANNE APRN) Dragon Disclaimer Dragon Disclaimer This electronic medical record was generated, in whole or in part, using a voice recognition dictation system. (ROWAN ANNE APRN) Departure Departure: Impression: Primary Impression: Dentalgia Additional Impressions: Dental infection Dental caries Fractured tooth Disposition: HOME / SELF CARE / HOMELESS Condition: GOOD Referrals: PCP,UNKNOWN (PCP) Patient Instructions: Dental Caries Additional Instructions: Please fill and take your antibiotic as directed by the ED provider you seen yesterday, continue to take Tylenol and or Motrin for pain, please see your dentist and doctor at [facility] this as you indicated you had an appointment for, return to the emergency department for worsening symptoms or other concerns. EMERGENCY DEPARTMENT GENERAL DISCHARGE INSTRUCTIONS Thank you for coming to [facility] ([facility]) today and trusting us with you care. We trust that you had a positivie experience in our Emergency Department. If you wish to speak to the department management, you may call the director at [phone]. YOUR FOLLOW UP INSTRUCTIONS ARE FOLLOWS: 1. Do you have a private Doctor? If you do not have a private doctor, please ask for a resource list of physicians or clinics that may be able to assist you with follow up care. 2. The Emergency Physician has interpreted your x-rays. The X-Ray specialist will also review them. If there is a change in the findings, you will be notified in 48 hours when at all possible. 3. A lab test or culture has been done, your results will be reviewed and you will be notified if you need a change in treatment. ADDITIONAL INSTRUCTIONS AND INFORMATION: 1. Your care today has been supervised by a physician who is specially trained in emergency care. Many problems require more than one evaluation for a complete diagnosis and treatment. We recommend that you schedule your follow up appointment as recommended to ensure complete treatment of you illness or injury. If you are unable to obtain follow up care and continue to have a problem, or if your condition worsens, we recommend that you return to the ED. 2. We are not able to safely determine your condition over the phone nor are we able to give sound medical advice over the phone. For these safety reasons, if you call for medical advice we will ask you to come to the ED for further evaluation. 3. If you have any questions regarding these discharge instructions please call the ED at [phone]. SAFETY INFORMATION: In the interest of safety, wellness, and injury prevention; we encourage you to wear your sealbelt, if you smoke; quite smoking, and we encourage family to use a protective helmet for bicycling and other sporting events that present an increased risk for head injury. IF YOUR SYMPTOMS WORSEN OR NEW SYMPTOMS DEVELOP, OR YOU HAVE CONCERNS ABOUT YOUR CONDITION; OR IF YOUR CONDITION WORSENS WHILE YOU ARE WAITING FOR YOUR FOLLOW UP APPOINTMENT; EITHER CONTACT YOUR PRIMARY CARE DOCTOR, THE PHYSICIAN WHOSE NAME AND NUMBER YOU WERE GIVEN, OR RETURN TO THE ED IMMEDIATELY. Attending Signature I have participated in the care of this patient and I have reviewed and agree with all pertinent clinical information above including history, exam, and recommendations. (INGRID BONE DO) Problem Qualifiers Additional Impressions: Fractured tooth Encounter type: subsequent encounter Fracture type: closed Fracture healing: with delayed healing Qualified Codes: S02.5XXG - Fracture of tooth (traumatic), subsequent encounter for fracture with delayed healing ROWAN ANNE APRN Dec 06, 2020 14:30 INGRID BONE DO Dec 06, 2020 14:55
[2020-12-06] MEDS ORDERED: HYDROcodone/APAP 5/325MG 1 TAB TABLET ONE (14:51)
[2020-12-06] MEDS ORDERED: HYDROcodone/APAP 5/325MG 1 TAB TABLET PO ONE (15:00)
== END 2020-12-06 14:45 | disposition home or self-care (01) ==
LOC: ER 14:11
DX: S02.5XXG Fracture of tooth (traumatic), subsequent encounter for fracture with delayed healing (principal); K02.9 Dental caries, unspecified; F41.9 Anxiety disorder, unspecified; F31.9 Bipolar disorder, unspecified; I10 Essential (primary) hypertension; F20.9 Schizophrenia, unspecified; F17.210 Nicotine dependence, cigarettes, uncomplicated; F43.10 Post-traumatic stress disorder, unspecified; Z88.2 Allergy status to sulfonamides; Z88.1 Allergy status to other antibiotic agents; X58.XXXD Exposure to other specified factors, subsequent encounter
CPT/HCPCS: 99283

== ENCOUNTER 2021-01-26 22:00 | Emergency (ER) | payer SELFPAY ==
[~2021-01-26] VITALS: Ht 167.6 cm; Wt 89.7 kg
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
[2021-01-26 23:10] LABS: BASO % 1 % (0-3); EOS # 0.1 x10^3/uL (0.0-0.7); EOS % 1 % (0-3); HEMATOCRIT 40.7 % (36.0-47.0); HEMOGLOBIN 13.3 g/dL (12.0-15.5); LYMPH # 1.7 x10^3/uL (1.0-4.8); LYMPH % 21 % (24-48); MEAN CORPUSCULAR HEMOGLOBIN 28 pg (25-35); MEAN CORPUSCULAR HGB CONC 33 g/dL (31-37); MEAN CORPUSCULAR VOLUME 87 fL (79-100); MONO # 0.8 x10^3/uL (0.0-1.1); MONO % 10 % (0-9); NEUT # 5.4 x10^3uL (1.8-7.7); NEUT % 67 % (31-73); PLATELET COUNT 329 x10^3/uL (140-400); RED CELL DISTRIBUTION WIDTH 16.2 % (11.5-14.5); WHITE BLOOD COUNT 8.1 x10^3/uL (4.0-11.0)
[2021-01-26 23:13] LABS: CALCIUM 8.9 mg/dL (8.5-10.1); CREATININE 0.9 mg/dL (0.6-1.0); GFR 70.1
--- NOTE | 2021-01-26 23:22 | EKG ---
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
[2021-01-26 23:25] LABS: POTASSIUM 3.9 mmol/L (3.5-5.1)
[2021-01-27 00:42] LABS: BILIRUBIN,URINE NEG (NEG); CLARITY,URINE HAZY; COLOR,URINE YELLOW; GLUCOSE,URINE NEG (NEG); NITRITE,URINE POS (NEG); UROBILINOGEN,URINE 0.2 mg/dL (0.2 mg/dL); WBC,URINE >40 /HPF (0-4)
[2021-01-27 00:43] LABS: BACTERIA,URINE FEW /HPF (0-FEW); SQUAMOUS EPITHELIAL CELL,UR OCC /LPF
[2021-01-27 00:44] LABS: BARBITURATES NEG (NEG); BENZODIAZEPINES NEG (NEG); CANNABINOIDS NEG (NEG); COCAINE NEG (NEG); METHADONE NEG (NEG); OPIATES NEG (NEG); PHENCYCLIDINE NEG (NEG)
[2021-01-27 00:46] LABS: AMPHETAMINE/METHAMPHETAMINE POS (NEG)
[2021-01-27] MEDS ORDERED: cefTRIAXone SODIUM 1 GM VIAL ONE (01:11)
[2021-01-27] MEDS ORDERED: CEPH750C9 PO (01:11)
[2021-01-27 01:20] VITALS: BP 122/64
[2021-01-27] MEDS: cefTRIAXone IM 1 GM VIAL IM ONE (01:22)
[2021-01-27] MEDS: PHENAZOPYRIDINE 200 MG TABLET. PO ONE (01:22)
[2021-01-27] MEDS: ACETAMINOPHEN 500 MG TABLET PO ONE (01:28)
== END 2021-01-27 01:36 | disposition home or self-care (01) ==
LOC: ER 22:00 → EEVIPCON 22:00 → ER 01-27 01:36
DX: R40.20 Unspecified coma (principal); F10.10 Alcohol abuse, uncomplicated; N39.0 Urinary tract infection, site not specified; F15.10 Other stimulant abuse, uncomplicated; F17.210 Nicotine dependence, cigarettes, uncomplicated; Z88.2 Allergy status to sulfonamides; Z88.1 Allergy status to other antibiotic agents; Z90.49 Acquired absence of other specified parts of digestive tract; Z98.51 Tubal ligation status
CPT/HCPCS: 36415; 80048; 80307; 81001; 81025; 82550; 85025; 87086; 93005; 96372; 99284; G0480; J0696

== ENCOUNTER 2021-03-18 00:20 | Emergency (ER) | payer SELFPAY | END 2021-03-18 00:30 | disposition left against medical advice (07) | LOC: ER 00:20 | DX: S49.92XA Unspecified injury of left shoulder and upper arm, initial encounter (principal); Z53.21 Procedure and treatment not carried out due to patient leaving prior to being seen by health care provider; Y08.09XA Assault by strike by other specified type of sport equipment, initial encounter; Y93.89 Activity, other specified; Y92.89 Other specified places as the place of occurrence of the external cause; Y99.8 Other external cause status ==

== ENCOUNTER 2021-03-23 02:38 | Emergency (ER) | payer SELFPAY ==
[~2021-03-23] VITALS: Ht 157.5 cm; Wt 81.9 kg
--- NOTE | 2021-03-23 03:17 | PHYS DOC ---
Past History Past Medical History: Alcoholism, Anxiety, Bipolar, Depression, Hypertension, Schizophrenia, Other Additional Past Medical Histor: brain issues, PTSD Past Surgical History: Cholecystectomy, Tonsillectomy, Tubal ligation Additional Past Surgical Histo: D&C Smoking: Cigarettes Alcohol Use: Occasionally Drug Use: Amphetamine Adult General Chief Complaint Chief Complaint: MULTIPLE COMPLAINTS HPI HPI Patient is a 40-year-old female with a past medical history significant for migraines who presents to the emergency department with a chief complaint of migraine. States she has been going on for couple of days now, is whole head in nature, 7 out of 10, dull and achy with no radiation. Denies any changes in vision, numbness/weakness/tingling, trouble sitting, standing or walking, chest pain, shortness of breath, abdominal pain, nausea, vomiting, dysuria, hematuria or blood in the stool. Review of Systems Review of Systems Review of systems otherwise unremarkable except noted in HPI Allergies Allergies Allergies Coded Allergies Type Severity Reaction Last Updated Verified Sulfa (Sulfonamide Antibiotics) Allergy Intermediate 12/06/20 Yes vancomycin Allergy Unknown 12/06/20 Yes Physical Exam Physical Exam Constitutional: Well developed, well nourished, no acute distress, non-toxic appearance. [] HENT: Normocephalic, atraumatic, tympanic membranes normal, oropharynx moist, no oral exudates, nose normal. [] Eyes: PERRLA, EOMI, conjunctiva normal, no discharge. [] Neck: Normal range of motion, no tenderness, supple, no stridor. [] Cardiovascular:Heart rate regular rhythm, no murmur [] Lungs & Thorax: Bilateral breath sounds clear to auscultation [] Abdomen: soft, no tenderness, Skin: Warm, dry, no erythema, no rash. [] Extremities: No tenderness, ROM intact, no edema. [] Neurologic: Alert and oriented X 3, normal motor function, normal sensory function, able to sit, stand and walk without issue, no focal deficits noted. [] Psychologic: Affect normal, judgement normal, mood normal. [] EKG EKG [] Radiology/Procedures Radiology/Procedures [] Heart Score C/O Chest Pain: N/A Risk Factors: Risk Factors: DM, Current or recent (<one month) smoker, HTN, HLP, family hist ory of CAD, obesity. Risk Scores: Risk Factors: DM, Current or recent (<one month) smoker, HTN, HLP, family history of CAD, obesity. Course & Med Decision Making Course & Med Decision Making Patient is a 40-year-old female who presents with a chief complaint of migraine Vital signs not concerning. Physical exam noted above. Patient given migraine cocktail. Imaging with no acute osseous abnormalities. negative. On reassessment patient's headache was significantly improved and patient stated she was ready to be discharged home. Discussed symptom management at home. Advised to follow-up with primary care physician in the morning. Gave return precautions to the ED. Patient grateful, verbalized understanding and agreed with plan of discharge. Dragon Disclaimer Dragon Disclaimer This electronic medical record was generated, in whole or in part, using a voice recognition dictation system. Departure Departure: Impression: Primary Impression: Migraine Additional Impression: Arm pain Disposition: 01 HOME / SELF CARE / HOMELESS Condition: GOOD Referrals: BETTIE ABDI MD (PCP) Patient Instructions: Migraine Headache Additional Instructions: Thank you for coming into the emergency department tonight and allowing us to take care of you. Please read all the attached information very carefully to go back over things we discussed. Please continue to use your Tylenol, ibuprofen and Benadryl as needed at home for pain control. Please call your primary care physician first thing in the morning to update on your ED visit and set up a follow-up to discuss migraine management. Please come back to the emergency department with new or concerning symptoms as discussed. Problem Qualifiers ISMAEL SILVA MD Mar 23, 2021 03:17
[2021-03-23] MEDS ORDERED: ONDANSETRON ODT 4 MG TAB.RAPDIS PO ONE (03:30)
[2021-03-23] MEDS ORDERED: PROCHLORPERAZINE 10 MG/2 ML VIAL. IM ONE (03:30)
[2021-03-23] MEDS ORDERED: KETOROLAC 15 MG/ML VIAL. IM ONE (03:30)
[2021-03-23] MEDS ORDERED: ACETAMINOPHEN 500 MG TABLET PO ONE (03:30)
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
[2021-03-23 04:51] VITALS: BP 118/70
== END 2021-03-23 04:51 | disposition home or self-care (01) ==
LOC: ER 02:38
DX: G43.909 Migraine, unspecified, not intractable, without status migrainosus (principal); M79.632 Pain in left forearm; F17.210 Nicotine dependence, cigarettes, uncomplicated; F15.10 Other stimulant abuse, uncomplicated; Z98.51 Tubal ligation status; Z90.49 Acquired absence of other specified parts of digestive tract; Z32.02 Encounter for pregnancy test, result negative; Z88.1 Allergy status to other antibiotic agents; Z88.2 Allergy status to sulfonamides
CPT/HCPCS: 73090; 81025; 96372; 99284; J0780; J1885; Q0162

== ENCOUNTER 2021-03-23 14:54 | Emergency (ER) | payer SELFPAY ==
[2021-03-23 04:51] VITALS: BP 118/70
== END 2021-03-23 15:00 | disposition left against medical advice (07) ==
LOC: ER 14:54
DX: K08.89 Other specified disorders of teeth and supporting structures (principal); Z53.21 Procedure and treatment not carried out due to patient leaving prior to being seen by health care provider

== ENCOUNTER 2021-05-05 14:44 | Emergency (ER) | payer SELFPAY ==
[~2021-05-05] VITALS: Ht 157.5 cm; Wt 81.9 kg
[2021-05-05] MEDS ORDERED: IV NORMAL SALINE 1,000ML 1,000 ML IV ONE (15:00)
--- NOTE | 2021-05-05 15:24 | RAD ---
Exam: CT head INDICATION: Migraine TECHNIQUE: Sequential axial images through the head were obtained without the administration of IV co ntrast. Exposure: One or more of the following in the visualized dose reduction techniques were utilized for this examination: 1. Automated exposure control 2. Adjustment of the MA and/or KV according to patient size 3. Use of iterative of reconstructive technique Comparisons: None FINDINGS: No focal parenchymal lesion or hemorrhage is identified. There is no midline shift or sulcal effaceme nt. No acute vascular territory infarction is identified. Gold-white distinction is preserved. The ventricular system is within normal limits without compression hydrocephalus. The basal cisterns are well maintained. The visualized portions of the paranasal sinuses and mastoid air cells are well-pneumatized. No acute fractures. IMPRESSION: No acute intracranial abnormality. Electronically signed by: Angelo Maldonado MD (05/05/2021 3:21 PM) [facility]
[2021-05-05] MEDS ORDERED: diphenhydrAMINE 50 MG/ML VIAL IVP ONE (15:30)
[2021-05-05] MEDS ORDERED: PROCHLORPERAZINE 10 MG/2 ML VIAL. IV ONE (15:30)
[2021-05-05 15:59] LABS: BASO # 0.1 x10^3/uL (0.0-0.2); BASO % 1 % (0-3); EOS # 0.1 x10^3/uL (0.0-0.7); EOS % 1 % (0-3); LYMPH # 1.4 x10^3/uL (1.0-4.8); LYMPH % 21 % (24-48); MEAN CORPUSCULAR HEMOGLOBIN 28 pg (25-35); MEAN CORPUSCULAR HGB CONC 33 g/dL (31-37); MEAN CORPUSCULAR VOLUME 87 fL (79-100); MONO # 0.7 x10^3/uL (0.0-1.1); MONO % 11 % (0-9); NEUT # 4.4 x10^3uL (1.8-7.7); NEUT % 66 % (31-73); PLATELET COUNT 367 x10^3/uL (140-400); RED BLOOD COUNT 4.25 x10^6/uL (3.50-5.40); RED CELL DISTRIBUTION WIDTH 15.9 % (11.5-14.5); WHITE BLOOD COUNT 6.7 x10^3/uL (4.0-11.0)
[2021-05-05 16:00] LABS: CALCIUM 8.7 mg/dL (8.5-10.1); CREATININE 0.6 mg/dL (0.6-1.0); GFR 111.9; POTASSIUM 3.8 mmol/L (3.5-5.1)
[2021-05-05 16:05] LABS: ALBUMIN 3.8 g/dL (3.4-5.0); TOTAL BILIRUBIN 0.3 mg/dL (0.2-1.0); TOTAL PROTEIN 7.8 g/dL (6.4-8.2)
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
[2021-05-05 17:00] VITALS: BP 116/69
== END 2021-05-05 17:17 | disposition home or self-care (01) ==
LOC: ER 14:44
DX: R51.9 Headache, unspecified (principal); F41.9 Anxiety disorder, unspecified; F31.9 Bipolar disorder, unspecified; I10 Essential (primary) hypertension; F20.9 Schizophrenia, unspecified; F10.20 Alcohol dependence, uncomplicated; F17.210 Nicotine dependence, cigarettes, uncomplicated; Z88.2 Allergy status to sulfonamides; Z88.1 Allergy status to other antibiotic agents; Y90.0 Blood alcohol level of less than 20 mg/100 ml
CPT/HCPCS: 36415; 70450; 80053; 85025; 96361; 96374; 96375; 99284; G0480; J0780; J1200; J7030